=== PATIENT | female | born 1975 | race Caucasian/White ===

== ENCOUNTER 2017-11-04 05:56 | Inpatient (IN) | payer MEDICARE ==
[~2017-11-04] VITALS: Ht 177.8 cm; Wt 114.9 kg
[2017-11-04] MEDS ORDERED: phenergan (06:12)
[2017-11-04] MEDS ORDERED: HYDR8TAB29 PO (06:12)
[2017-11-04] MEDS ORDERED: zofran (06:12)
[2017-11-04] MEDS ORDERED: GABA600T2 PO (06:12)
[2017-11-04] MEDS ORDERED: seroquel PO (06:12)
[2017-11-04] MEDS ORDERED: diphenhydrAMINE 50 MG/ML VIAL IVP ONE (06:30)
[2017-11-04] MEDS ORDERED: IV NORMAL SALINE 1,000ML 1,000 ML IV SCH (06:30)
[2017-11-04] MEDS ORDERED: ONDANSETRON PF 4 MG/2 ML VIAL. IV ONE (06:30)
[2017-11-04] MEDS ORDERED: 0.9 % SODIUM CHLORIDE 10 ML DISP.SYRIN. IV ONE (06:30)
[2017-11-04] MEDS ORDERED: IPRATRPIUM/ALBUTEROL 0.5/2.5MG 3 ML NEBU. NEB ONE (06:30)
[2017-11-04] MEDS ORDERED: methylPREDNISolone SOD SUCC PF 125 MG/2 ML VIAL. IV ONE (06:30)
--- NOTE | 2017-11-04 07:20 | RAD ---
Chest, 2 views, 11/04/2017: History: Shortness of breath, cough Comparison is made to a study from 10/27/2012. The heart size is normal. There are mild bilateral pulmonary infiltrates with poor definition of the underlying pulmonary vascularity. There is no evidence of pleural fluid or pneumothorax. A tubing compatible with a SNAKER [employer]IVING HORSES shunt tube overlies the right chest. A surgical plate and screws is evident in the lower cervical spine. IMPRESSION: Mild bilateral pulmonary infiltrates, right greater than left, suggesting pneumonia. Pulmonary edema is less likely.
[2017-11-04] MEDS ORDERED: VANCOMYCIN 1 GM in IV NORMAL SALINE 250ML 250 ML IV ONE (08:00)
[2017-11-04 08:04] LABS: BASO % 0 % (0-3); EOS # 0.1 x10^3/uL (0.0-0.7); EOS % 2 % (0-3); HEMATOCRIT 35.5 % (36.0-47.0); HEMOGLOBIN 11.7 g/dL (12.0-15.5); LYMPH % 20 % (24-48); MEAN CORPUSCULAR HEMOGLOBIN 25 pg (25-35); MEAN CORPUSCULAR HGB CONC 33 g/dL (31-37); MEAN CORPUSCULAR VOLUME 75 fL (79-100); MONO # 0.6 x10^3/uL (0.0-1.1); MONO % 12 % (0-9); NEUT # 3.1 x10^3uL (1.8-7.7); NEUT % 66 % (31-73); PLATELET COUNT 240 x10^3/uL (140-400); RED BLOOD COUNT 4.77 x10^6/uL (3.50-5.40); RED CELL DISTRIBUTION WIDTH 16.5 % (11.5-14.5); WHITE BLOOD COUNT 4.8 x10^3/uL (4.0-11.0)
[2017-11-04 08:06] LABS: INFLUENZA A PATIENT NEGATIVE (NEGATIVE); INFLUENZA B PATIENT NEGATIVE (NEGATIVE)
[2017-11-04] MEDS ORDERED: PIPERACILLIN/TAZOBACTAM 3.375 GM VIAL IV ONE (08:06)
[2017-11-04] MEDS ORDERED: IV NORMAL SALINE 50ML 50 ML ONE (08:06)
[2017-11-04] MEDS ORDERED: PIPERACILLIN/TAZOBACTAM 3.375 GM in IV NORMAL SALINE 50ML 50 ML IV ONE (08:15)
[2017-11-04 08:19] LABS: ALBUMIN 3.4 g/dL (3.4-5.0); ALBUMIN/GLOBULIN RATIO 0.9 (1.0-1.7); CALCIUM 8.9 mg/dL (8.5-10.1); CREATININE 0.9 mg/dL (0.6-1.0); POTASSIUM 3.8 mmol/L (3.5-5.1); TOTAL BILIRUBIN 0.4 mg/dL (0.2-1.0); TOTAL PROTEIN 7.1 g/dL (6.4-8.2)
--- NOTE | 2017-11-04 08:23 | EKG ---
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
[2017-11-04] MEDS ORDERED: VANCOMYCIN 2 GM in IV NORMAL SALINE 500ML 500 ML IV ONE (08:30)
[2017-11-04] MEDS ORDERED: HYDROmorphone PF 2 MG/ML VIAL ONE (08:54)
--- NOTE | 2017-11-04 08:59 | PHYS DOC ---
Past History Past Medical History: Gallstones, Migraines, Other Past Surgical History: Cholecystectomy, , Other Alcohol Use: None Drug Use: None Adult General Chief Complaint Chief Complaint: SHORTNESS OF BREATH HPI HPI 42-year-old nonsmoking female patient with history of pseudotumor cerebri on Dilaudid who is visiting from [place] complaining of productive cough since yesterday that getting worse today. Patient complaining of shortness of breath and episodes of nausea and vomiting during cough. Patient also complaining of sternal and bilateral chest wall pain with cough. Patient denies fever but complaining of episodes of chills associated with nasal congestion or sore throat. Patient complaining of headache and neck pain that did not get better with home Dilaudid. Patient had sick contacts at home. Review of Systems Review of Systems Constitutional: Denies fever , reports chills Eyes: Denies change in visual acuity, redness, or eye pain [] HENT: Reports nasal congestion and sore throat [] Respiratory: Reports cough and shortness of breath [] Cardiovascular: No additional information not addressed in HPI [] GI: Denies abdominal pain, bloody stools or diarrhea [, reports nausea and vomiting] : Denies dysuria or hematuria [] Musculoskeletal: Denies back pain or joint pain [] Integument: Denies rash or skin lesions [] Neurologic: Reports headache, denies focal weakness or sensory changes [] Endocrine: Denies polyuria or polydipsia [] All other systems were reviewed and found to be within normal limits, except as documented in this note. Current Medications Current Medications Current Medications Medications (Trade) Dose Ordered Sig/Mark Start Time Stop Time Status Last Admin Dose Admin Albuterol/ Ipratropium (Duoneb) 3 ml 1X ONCE 11/04/17 06:30 11/04/17 06:31 DC 11/04/17 06:35 3 ML Diphenhydramine HCl (Benadryl) 50 mg 1X ONCE 11/04/17 06:30 11/04/17 06:31 DC 11/04/17 07:58 50 MG Hydromorphone HCl (Dilaudid) 1 mg 1X ONCE 11/04/17 09:00 11/04/17 09:01 UNV Methylprednisolone Sodium Succinate (SOLU-Medrol 125MG VIAL) 125 mg 1X ONCE 11/04/17 06:30 11/04/17 06:31 DC 11/04/17 07:59 125 MG Ondansetron HCl (Zofran) 4 mg 1X ONCE 11/04/17 06:30 11/04/17 06:31 DC 11/04/17 07:59 4 MG Piperacillin Sod/ Tazobactam Sod (Zosyn) 3.375 gm STK-MED ONCE 11/04/17 08:06 11/04/17 08:07 DC Piperacillin Sod/ Tazobactam Sod 3.375 gm/Sodium Chloride 50 ml @ 100 mls/hr 1X ONCE 11/04/17 08:15 11/04/17 08:44 DC 11/04/17 08:09 100 MLS/HR Sodium Chloride 50 ml @ As Directed STK-MED ONCE 11/04/17 08:06 11/04/17 08:07 DC Sodium Chloride (Normal Saline Flush) 10 ml 1X ONCE 11/04/17 06:30 11/04/17 06:31 DC Vancomycin HCl 1 gm/Sodium Chloride 250 ml @ 250 mls/hr 1X ONCE 11/04/17 08:00 11/04/17 08:59 UNV Vancomycin HCl 2 gm/Sodium Chloride 500 ml @ 250 mls/hr 1X ONCE 11/04/17 08:30 11/04/17 10:29 11/04/17 08:50 250 MLS/HR Allergies Allergies Allergies Coded Allergies Type Severity Reaction Last Updated Verified azithromycin Allergy Intermediate 11/04/17 Yes gadopentetic acid Allergy Intermediate 11/04/17 Yes morphine Allergy Intermediate 11/04/17 Yes Physical Exam Physical Exam Constitutional: Well developed, well nourished, moderate distress, non-toxic appearance. [] HENT: Normocephalic, atraumatic, bilateral external ears normal, oropharynx moist, pharyngeal erythema ,no oral exudates, nose normal. [] Eyes: PERRLA, EOMI, conjunctiva normal, no discharge. [] Neck: Normal range of motion, no tenderness, supple, no stridor. [] Cardiovascular: Tachycardia, no murmur [] Lungs & Thorax: Mild rhonchi and wheezing bilateral lung Abdomen: Bowel sounds normal, soft, no tenderness, no masses, no pulsatile masses. [] Skin: Warm, dry, no erythema, no rash. [] Back: No tenderness, no CVA tenderness. [] Extremities: No tenderness, no cyanosis, no clubbing, ROM intact, no edema. [] Neurologic: Alert and oriented X 3, normal motor function, normal sensory function, no focal deficits noted. [] Psychologic: Affect normal, judgement normal, mood normal. [] Current Patient Data Vital Signs Vital Signs Date Time Temp Pulse Resp B/P (MAP) Pulse Ox O2 Delivery O2 Flow Rate FiO2 11/04/17 06:36 92 Room Air 11/04/17 06:00 98.4 99 60 Lab Results Laboratory Tests Test 11/04/17 07:25 11/04/17 07:48 Influenza Type A (Rapid) Negative (NEGATIVE) Influenza Type B (Rapid) Negative (NEGATIVE) White Blood Count 4.8 x10^3/uL (4.0-11.0) Red Blood Count 4.77 x10^6/uL (3.50-5.40) Hemoglobin 11.7 g/dL (12.0-15.5) L Hematocrit 35.5 % (36.0-47.0) L Mean Corpuscular Volume 75 fL (79-100) L Mean Corpuscular Hemoglobin 25 pg (25-35) Mean Corpuscular Hemoglobin Concent 33 g/dL (31-37) Red Cell Distribution Width 16.5 % (11.5-14.5) H Platelet Count 240 x10^3/uL (140-400) Neutrophils (%) (Auto) 66 % (31-73) Lymphocytes (%) (Auto) 20 % (24-48) L Monocytes (%) (Auto) 12 % (0-9) H Eosinophils (%) (Auto) 2 % (0-3) Basophils (%) (Auto) 0 % (0-3) Neutrophils # (Auto) 3.1 x10^3uL (1.8-7.7) Lymphocytes # (Auto) 1.0 x10^3/uL (1.0-4.8) Monocytes # (Auto) 0.6 x10^3/uL (0.0-1.1) Eosinophils # (Auto) 0.1 x10^3/uL (0.0-0.7) Basophils # (Auto) 0.0 x10^3/uL (0.0-0.2) Sodium Level 140 mmol/L (136-145) Potassium Level 3.8 mmol/L (3.5-5.1) Chloride Level 103 mmol/L (98-107) Carbon Dioxide Level 28 mmol/L (21-32) Anion Gap 9 (6-14) Blood Urea Nitrogen 10 mg/dL (7-20) Creatinine 0.9 mg/dL (0.6-1.0) Estimated GFR (Cockcroft-Gault) 69.0 BUN/Creatinine Ratio 11 (6-20) Glucose Level 109 mg/dL (70-99) H Lactic Acid Level 0.9 mmol/L (0.4-2.0) Calcium Level 8.9 mg/dL (8.5-10.1) Total Bilirubin 0.4 mg/dL (0.2-1.0) Aspartate Amino Transferase (AST) 29 U/L (15-37) Alanine Aminotransferase (ALT) 32 U/L (14-59) Alkaline Phosphatase 110 U/L (46-116) Creatine Kinase 76 U/L (26-192) Creatine Kinase MB (Mass) < 0.5 ng/mL (0.0-3.6) Creatine Kinase MB Relative Index 0.7 % (0-4) Troponin I Quantitative < 0.017 ng/mL (0-0.055) TW-Wny-B-Type Natriuretic Peptide 46 pg/mL (0-124) Total Protein 7.1 g/dL (6.4-8.2) Albumin 3.4 g/dL (3.4-5.0) Albumin/Globulin Ratio 0.9 (1.0-1.7) L EKG EKG EKG interpreted by me. EKG at 0 818 showed normal sinus rhythm at rate of 95, T wave abnormality in inferior leads, no acute distress and T wave abnormality[] Radiology/Procedures Radiology/Procedures [] [address] [address] IMAGING REPORT Signed PATIENT: BIJU HENSON ACCOUNT: [id number] : 1975 LOCATION: ER AGE: 42 SEX: F EXAM STATUS: REG ER ORD. PHYSICIAN: VIANNEY SCHUSTER MD REASON: cough and SOB PROCEDURE: CHEST PA & LATERAL Chest, 2 views, 11/04/2017: History: Shortness of breath, cough Comparison is made to a study from 10/27/2012. The heart size is normal. There are mild bilateral pulmonary infiltrates with poor definition of the underlying pulmonary vascularity. There is no evidence of pleural fluid or pneumothorax. A tubing compatible with a VITICULTURIST shunt tube overlies the right chest. A surgical plate and screws is evident in the lower cervical spine. IMPRESSION: Mild bilateral pulmonary infiltrates, right greater than left, suggesting pneumonia. Pulmonary edema is less likely. DICTATED AND SIGNED BY: TRAN LY MD DATE: 11/04/17 0715 CC: VIANNEY SCHUSTER MD; PCP,NO ~ Course & Med Decision Making Course & Med Decision Making Pertinent Labs and Imaging studies reviewed. (See chart for details) Evaluation of patient in ER showed 42-year-old female patient with complaining of upper respiratory symptoms and shortness of breath since yesterday. Patient had temperature of 99.6 at arrival to ER with O2 sats of 92% at room air that improved with nasal oxygen to 95%. X-ray showed bilateral infiltrate. Patient did not have leukocytosis or elevation of lactic acid of hypertension. Zosyn and vancomycin IV fluid started in ER and patient felt better. Plan to admit patient with diagnosis of bilateral pneumonia. [] Dragon Disclaimer Dragon Disclaimer This electronic medical record was generated, in whole or in part, using a voice recognition dictation system. Departure Departure: Impression: Primary Impression: Bilateral pneumonia Additional Impressions: Hypoxia Headache Pseudotumor cerebri Anemia Disposition: 09 ADMITTED INPATIENT (At 0854) Admitting Physician: Chandan Lim Condition: IMPROVED Referrals: PCP,NO (PCP) Problem Qualifiers VIANNEY SCHUSTER MD Nov 04, 2017 08:59
[2017-11-04] MEDS ORDERED: ONDANSETRON PF 4 MG/2 ML VIAL. IV PRN (09:00)
[2017-11-04] MEDS ORDERED: HYDROmorphone PF 2 MG/ML VIAL IV ONE (09:00)
[2017-11-04] MEDS ORDERED: HYDROmorphone PF 1 MG/ML DISP.SYRIN IV ONE (09:00)
[2017-11-04] MEDS: IV NORMAL SALINE 1,000ML 1,000 ML IV SCH ×2 (10:05→16:57)
[2017-11-04 10:35] VITALS: BP 121/79
[2017-11-04] MEDS ORDERED: ONDA4TAB12 PO (10:45)
[2017-11-04] MEDS ORDERED: PROM25SU32 RC (10:45)
[2017-11-04] MEDS: IPRATRPIUM/ALBUTEROL 0.5/2.5MG 3 ML NEBU. NEB SCH ×3 (11:35→20:34)
[2017-11-04] MEDS ORDERED: SEROQUEL PO PRN (12:00)
[2017-11-04] MEDS ORDERED: PROMETHAZINE 25 MG SUPP.RECT. RC PRN (12:00)
[2017-11-04] MEDS: GABAPENTIN 300 MG CAPSULE. PO SCH ×2 (12:43→21:00)
[2017-11-04] MEDS: HYDROmorphone PF 2 MG/ML VIAL IV PRN ×3 (12:44→21:11)
[2017-11-04] MEDS: BACLOFEN 10 MG TABLET PO PRN ×2 (12:50→20:59)
[2017-11-04] MEDS ORDERED: HYDROmorphone 2 MG TABLET PO SCH (13:00)
[2017-11-04] MEDS ORDERED: ONDANSETRON ODT 4 MG TAB.RAPDIS PO SCH (14:00)
[2017-11-04] MEDS: cefTRIAXone IV Push 1 GM VIAL. IVP SCH (14:14)
[2017-11-04] MEDS: AZITHROMYCIN 500 MG in IV NORMAL SALINE 250ML 250 ML IV SCH (14:15)
[2017-11-04 14:44] VITALS: BP 130/74
[2017-11-04] MEDS: PROMETHAZINE 12.5 MG in IV NORMAL SALINE 50ML 50 ML IV PRN ×2 (15:31→21:15)
[2017-11-04 19:41] VITALS: BP 103/66
[2017-11-04 23:45] VITALS: BP 95/55
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
[2017-11-05] MEDS: HYDROmorphone PF 2 MG/ML VIAL IV PRN ×6 (00:54→21:21)
[2017-11-05] MEDS ORDERED: PROMETHAZINE IM 25 MG/ML VIAL IM ONE (01:40)
[2017-11-05] MEDS: IV NORMAL SALINE 1,000ML 1,000 ML IV SCH (02:21)
[2017-11-05] MEDS: IPRATRPIUM/ALBUTEROL 0.5/2.5MG 3 ML NEBU. NEB SCH ×2 (05:15→09:34)
[2017-11-05 06:04] VITALS: BP 98/62
[2017-11-05 06:50] LABS: BASO % 0 % (0-3); EOS % 0 % (0-3); HEMATOCRIT 32.5 % (36.0-47.0); HEMOGLOBIN 10.6 g/dL (12.0-15.5); LYMPH # 1.6 x10^3/uL (1.0-4.8); LYMPH % 22 % (24-48); MEAN CORPUSCULAR HEMOGLOBIN 25 pg (25-35); MEAN CORPUSCULAR HGB CONC 33 g/dL (31-37); MEAN CORPUSCULAR VOLUME 75 fL (79-100); MONO # 0.6 x10^3/uL (0.0-1.1); MONO % 9 % (0-9); NEUT # 4.7 x10^3uL (1.8-7.7); NEUT % 68 % (31-73); PLATELET COUNT 204 x10^3/uL (140-400); RED BLOOD COUNT 4.32 x10^6/uL (3.50-5.40); RED CELL DISTRIBUTION WIDTH 16.3 % (11.5-14.5)
[2017-11-05 07:13] LABS: ALBUMIN/GLOBULIN RATIO 0.8 (1.0-1.7); CALCIUM 8.4 mg/dL (8.5-10.1); CREATININE 0.9 mg/dL (0.6-1.0); POTASSIUM 3.7 mmol/L (3.5-5.1); TOTAL BILIRUBIN 0.2 mg/dL (0.2-1.0); TOTAL PROTEIN 6.7 g/dL (6.4-8.2)
[2017-11-05] MEDS: GABAPENTIN 300 MG CAPSULE. PO SCH ×3 (08:57→21:00)
[2017-11-05] MEDS: BACLOFEN 10 MG TABLET PO PRN ×2 (08:57→13:16)
[2017-11-05] MEDS: PROMETHAZINE 12.5 MG in IV NORMAL SALINE 50ML 50 ML IV PRN ×4 (08:57→22:12)
[2017-11-05 10:25] VITALS: BP 132/78
[2017-11-05] MEDS: AZITHROMYCIN 500 MG in IV NORMAL SALINE 250ML 250 ML IV SCH (13:17)
[2017-11-05] MEDS: cefTRIAXone IV Push 1 GM VIAL. IVP SCH (13:17)
[2017-11-05 16:18] VITALS: BP 130/79
[2017-11-05 19:46] VITALS: BP 158/87
--- NOTE | 2017-11-05 20:26 | PN ---
DATE: 11/05/2017 SUBJECTIVE: The patient resting slightly propped up still complaining of severe headache congested and nauseous. She has no fever. Her white cell count continued to be normal, and so far, her cultures are negative. Given the fact that her shunt was revised 4 times and she has an episode of meningitis, I offered to transfer her to [facility] where as we have a neurosurgeon that can drain the reservoir and send CSF for culture and Gram stain. However, the patient said that she does want anybody else to mess with her shunt and she would rather go back to [facility] where had to see her neurosurgical team. PHYSICAL EXAMINATION: GENERAL: When I examined her this afternoon, she looked well and was clearly in no apparent respiratory distress. No pallor, jaundice, cyanosis, or thyromegaly. No jugular venous distension. No lower limb edema. VITAL SIGNS: Her heart rate was 75, blood pressure 132/78, temperature was 98.6, respiratory rate was 18 and oxygen saturation was 94% on room air. HEAD, EYES, EARS, NOSE AND THROAT: Showed normocephalic, atraumatic. NECK: Supple. HEART: Showed normal first and second sounds. No gallop, rub or murmur. CHEST: Showed central trachea, equal bilateral expansion, air entry, vesicular sounds. I could not really appreciate any crepitation or rhonchi. ABDOMEN: Distended, soft, nontender. No guarding or rigidity. No organomegaly. All hernial orifices intact. Bowel sounds normal. NEUROLOGIC: She is awake, alert, responding appropriately. Cranial nerves intact. She moves extremities without difficulty. She ambulates without assistance or assistive devices. Her intake was 2400. No output was recorded. LABORATORY DATA: Her lab work this morning showed a white cell count 7000, hemoglobin 10.5, hematocrit 32, MCV 75, platelet count of 204,000. Her serum sodium was 143, potassium 3.7, chloride 107, bicarbonate 30, anion gap of 6, BUN 9, creatinine 0.9. Estimated GFR was 69 mL per minute. Her glucose was 104, calcium was 8.4. Total bilirubin, AST, ALT, alkaline phosphatase were normal. Total protein was 6.7, albumin 3. Her influenza A and B were negative. Her blood cultures are so far negative. Her chest x-ray showed that she has mild bilateral pulmonary infiltrates, right greater than left, suggesting pneumonia, pulmonary edema is less likely. PLAN: My plan is to continue with the IV Zithromax as well as Rocephin. We will plan to discharge her tomorrow to travel back to [place] to be evaluated by her neurosurgeon. She is reluctant to allow any other person to drain her reservoir. STEVE FERMIN MD DR: LOKESH/wellington JOB#: [id number] / [id number]
[2017-11-05] MEDS: ONDANSETRON PF 4 MG/2 ML VIAL. IV PRN (20:31)
[2017-11-05] MEDS: LACTOBACILLUS RHAMNOSUS GG 1 CAPSULE. PO SCH (21:00)
[2017-11-06] MEDS: ONDANSETRON PF 4 MG/2 ML VIAL. IV PRN ×3 (00:06→09:23)
[2017-11-06] MEDS: HYDROmorphone PF 2 MG/ML VIAL IV PRN ×3 (01:19→09:27)
[2017-11-06] MEDS: PROMETHAZINE 12.5 MG in IV NORMAL SALINE 50ML 50 ML IV PRN ×2 (02:22→06:06)
[2017-11-06 05:40] VITALS: BP 110/57
[2017-11-06 07:33] VITALS: BP 107/64
[2017-11-06] MEDS: GABAPENTIN 300 MG CAPSULE. PO SCH (09:00)
[2017-11-06] MEDS: LACTOBACILLUS RHAMNOSUS GG 1 CAPSULE. PO SCH (09:00)
[2017-11-06] MEDS ORDERED: IV NORMAL SALINE 1,000ML 1,000 ML IV SCH (10:30)
--- NOTE | 2017-11-10 20:24 | DS ---
DATE OF DISCHARGE: HOSPITAL COURSE: The patient is a 42-year-old female patient was admitted originally to [facility] with shortness of breath, episode of nausea and vomiting during cough. She also complained of bilateral chest wall pain. Denied any fever. She has also severe headache, neck pain, did not get better with home Dilaudid. Given that she has benign intracranial hypertension, she has a PICK UP MAN shunt. Her shunt was revised 4 times and she has an episode of meningitis. Before I decided to transfer her to [facility] where she was evaluated by the neurologist, neurosurgeon and Infectious Disease, she underwent lumbar puncture, which showed that her CSF is crystal clear with CSF glucose of 61, CSF protein was only 35 and 1 WBC. She was seen by the neurologist and a lumbar puncture opening pressure was slightly elevated, but there is CT scan showed no evidence of hydrocephalus. She continued to complain of severe headache and has been unable to tolerate any food, although her appetite has slowly improved this morning. She continued to have severe migraine headache and requested cocktail that her hospital in [place] gives her this episode including 10 mg of dexamethasone, 4 mg hydromorphone, 25 mg Benadryl and 25 mg of Phenergan and the patient's headache has completely resolved. She felt better and requested to be discharged home. PHYSICAL EXAMINATION: GENERAL: When I saw her this morning, she looked well and was clearly in no apparent respiratory distress. VITAL SIGNS: Her heart rate was 67, blood pressure 121/70, temperature was 98.6, respiratory rate was 18 and oxygen saturation was 96%. The rest of clinical examination is unremarkable, has not changed. LABORATORY DATA: Her lab work this morning showed a white cell count of 8400, hemoglobin 10, hematocrit 31, MCV 74, and platelet count 239,000. Her serum sodium was 140, potassium 3.6, chloride 104, bicarbonate 31, anion gap of 5, BUN 5, creatinine 0.8, estimated GFR was 79 mL per minute. Her glucose ____, calcium was 8.6. DISCHARGE MEDICATIONS: She was discharged home to continue on following medication; cefpodoxime 200 mg twice a day, fluconazole or Diflucan 150 mg 3 times a week, promethazine or Phenergan 25 mg rectally every 6 hours for nausea, azithromycin 250 mg daily, gabapentin 600 mg 3 times a day, hydromorphone 8 mg 4 times a day, ondansetron 4 mg 3 times a day, promethazine 25 mg 3 times a day and quetiapine fumarate or Seroquel 300 mg at bedtime. FINAL DISCHARGE DIAGNOSES: Benign intracranial hypertension, headache, status post lumbar puncture that was negative, community-acquired pneumonia. She also has lupus anticoagulant, iron deficiency anemia, bleeding disorders with factor B12 deficiency as well as thrombocytopenia. STEVE FERMIN MD DR: LOKESH/wellington JOB#: [id number] / [id number]
== END 2017-11-06 11:14 | disposition short-term general hospital (02) | DRG 102 ==
LOC: ER 05:56 → 1 SOUTH 09:00
PROVIDERS: ADMIT Internal Medicine; ATTEND Internal Medicine
DX: G93.2 Benign intracranial hypertension (principal); J18.9 Pneumonia, unspecified organism; D68.2 Hereditary deficiency of other clotting factors; D68.62 Lupus anticoagulant syndrome; D64.9 Anemia, unspecified; R09.02 Hypoxemia; G43.909 Migraine, unspecified, not intractable, without status migrainosus; Z86.61 Personal history of infections of the central nervous system; Z87.442 Personal history of urinary calculi; Z88.1 Allergy status to other antibiotic agents; Z98.1 Arthrodesis status; Z98.2 Presence of cerebrospinal fluid drainage device; Z87.81 Personal history of (healed) traumatic fracture; Z88.8 Allergy status to other drugs, medicaments and biological substances; Z90.49 Acquired absence of other specified parts of digestive tract
CPT/HCPCS: 36415; 71046; 80053; 82553; 83605; 83880; 84484; 85025; 87040; 87804; 93005; 94640; 96365; 96367; 96375; J0456; J0696; J1170; J1200; J2405; J2543; J2550; J2930; J3370; J7040; J7050; J7620; 99285-25; J7030